=== PATIENT | female | born 1990 | race Two or more races ===

== ENCOUNTER 2020-03-09 10:40 | Inpatient (IN) | payer BC ==
[~2020-03-09] VITALS: Ht 152.4 cm; Wt 82.8 kg
[~2020-03-09 10:40] MED LIST: METHYLERGONOVINE 0.2 MG/ML IM ONE
[2020-03-09] MEDS ORDERED: ALUMINUM/MAG/SIMETHICONE 30 ML UDC PO PRN (21:30)
[2020-03-09] MEDS ORDERED: D5%-LACTATED RINGERS 1,000 ML IV SCH (21:30)
[2020-03-09] MEDS ORDERED: OXYTOCIN 30U/ 0.9% NaCL 500ML 500 ML IV PRN (21:30)
[2020-03-09] MEDS ORDERED: TERBUTALINE 1 MG/ML, 1ML SQ PRN (21:30)
[2020-03-09] MEDS ORDERED: TERBUTALINE 1 MG/ML, 1ML IVPush PRN (21:30)
[2020-03-09] MEDS ORDERED: FENTANYL PF 100 MCG/2ML IVPush PRN (21:30)
[2020-03-09] MEDS ORDERED: FENTANYL PF 100 MCG/2ML IV PRN (21:30)
[2020-03-09] MEDS ORDERED: PLEASE ENTER ALLERGIES MC SCH (21:30)
[2020-03-09] MEDS ORDERED: OXYTOCIN 30U/ 0.9% NaCL 500ML 500 ML IV ONE (21:30)
[2020-03-09] MEDS ORDERED: PENICILLIN GK 5,000,000 UNITS in DEXTROSE 5% 100 ML IVPB ONE (21:30)
[2020-03-09] MEDS ORDERED: CALCIUM CARBONATE 500 MG TAB.CHEW PO PRN (21:30)
[2020-03-09 21:41] LABS: BASOPHILS % (AUTO) 1 % (0-1); EOSINOPHILS % (AUTO) 1 % (1-7); LYMPHOCYTES % (AUTO) 24 % (22-44); MEAN CORPUSCULAR HEMOGLOBIN 32.5 pg (27.0-34.8); MEAN CORPUSCULAR HGB CONC 34.2 g/dL (32.4-35.8); MEAN PLATELET VOLUME 9.2 fL (7.4-10.4); MONOCYTES % (AUTO) 8 % (2-9); NEUTROPHILS % (AUTO) 67 % (42-75); PLATELET COUNT 262 x10^3/uL (130-400); RED BLOOD COUNT 3.79 x10^6/uL (3.82-5.3)
[2020-03-09 21:44] LABS: MD NO
[2020-03-09] MEDS ORDERED: NEWBORN KIT ONE (22:00)
[2020-03-09] MEDS ORDERED: MISOPROSTOL 25 MCG TABLET ONE (22:28)
[2020-03-09] MEDS: MISOPROSTOL 25 MCG TABLET VG PRN (22:30)
[2020-03-09] MEDS: LACTATED RINGERS 1,000 ML IV SCH (22:41)
[2020-03-09] MEDS ORDERED: OXYTOCIN 30U/ 0.9% NaCL 500ML 500 ML ONE (22:49)
[2020-03-10 00:05] VITALS: BP 121/76
[2020-03-10] MEDS ORDERED: MISOPROSTOL 25 MCG TABLET ONE (02:31)
[2020-03-10] MEDS: LACTATED RINGERS 1,000 ML IV SCH ×2 (02:46→09:10)
[2020-03-10] MEDS: MISOPROSTOL 25 MCG TABLET VG PRN (02:46)
[2020-03-10] MEDS ORDERED: ONDANSETRON 2MG/ML, 2ML ONE ×2 (07:50→17:00)
[2020-03-10] MEDS: ONDANSETRON 2MG/ML, 2ML IVPush PRN ×2 (07:52→17:03)
[2020-03-10] MEDS ORDERED: FENTANYL PF 100 MCG/2ML ONE (08:28)
[2020-03-10] MEDS ORDERED: FENTANYL/BUPIV./NS/PF 250 ML EPIDCONT ONE (09:23)
[2020-03-10] MEDS ORDERED: LIDOCAINE/PF 1.5% EPI 1:200K, 10 ML ONE (09:23)
[2020-03-10] MEDS ORDERED: LACTATED RINGERS 1,000 ML IVBOLUS PRN (10:30)
[2020-03-10] MEDS ORDERED: LACTATED RINGERS 1,000 ML IV SCH (10:30)
[2020-03-10] MEDS ORDERED: NALOXONE 0.4 MG/ML, 1ML IVPush PRN (10:30)
[2020-03-10] MEDS ORDERED: FENTANYL/BUPIV./NS/PF 250 ML EPIDCONT SCH (10:30)
[2020-03-10] MEDS ORDERED: EPHEDRINE 50 MG/ML, 1ML IVPush PRN (10:30)
[2020-03-10] MEDS: PENICILLIN GK 2,500,000 UNITS in DEXTROSE 5% 100 ML IV SCH ×3 (11:17→19:44)
[2020-03-10] MEDS ORDERED: ACETAMINOPHEN 325 MG TABLET ONE ×2 (14:53→19:40)
[2020-03-10] MEDS ORDERED: ACETAMINOPHEN 325 MG TABLET PO PRN (19:45)
[2020-03-10] MEDS ORDERED: DIPHENHYDRAMINE 50 MG/ML, 1ML ONE (20:55)
[2020-03-10] MEDS ORDERED: METOCLOPRAMIDE 5 MG/ML, 2ML ONE (23:11)
[2020-03-10] MEDS ORDERED: SODIUM CITRATE/CITRIC ACID 15 ML UDC ONE (23:12)
[2020-03-10] MEDS ORDERED: NEWBORN KIT ONE (23:19)
[2020-03-11] MEDS ORDERED: METHYLERGONOVINE 0.2 MG/ML IM PRN
[2020-03-11] MEDS ORDERED: OXYcodone/APAP 5/325MG TABLET PO PRN ×2
[2020-03-11] MEDS ORDERED: METOCLOPRAMIDE 5 MG/ML, 2ML IV PRN
[2020-03-11] MEDS ORDERED: IBUPROFEN 600 MG TABLET PO PRN
[2020-03-11] MEDS ORDERED: KETOROLAC 30 MG/1 ML IV SCH
[2020-03-11] MEDS ORDERED: CALCIUM CARBONATE 500 MG TAB.CHEW PO PRN
[2020-03-11] MEDS ORDERED: LACTATED RINGERS 1,000 ML IV SCH ×2
[2020-03-11] MEDS ORDERED: ACETAMINOPHEN 325 MG TABLET PO PRN
[2020-03-11] MEDS ORDERED: GLYCERIN ADULT SUPP PR PRN
[2020-03-11] MEDS ORDERED: ONDANSETRON 2MG/ML, 2ML IV PRN
[2020-03-11] MEDS ORDERED: SIMETHICONE 80 MG CHEW TAB PO PRN
[2020-03-11] MEDS ORDERED: DIPH,PERTUSS(ACELL),TET VAC/PF NC IM-VACC PRN
[2020-03-11] MEDS ORDERED: OXYTOCIN 30U/ 0.9% NaCL 500ML 500 ML IV SCH
[2020-03-11] MEDS ORDERED: DOCUSATE 100 MG CAPSULE PO PRN
[2020-03-11] MEDS ORDERED: MISOPROSTOL 200 MCG TABLET PR PRN
[2020-03-11] MEDS ORDERED: METHYLERGONOVINE 0.2 MG/ML IM ONE
[2020-03-11] MEDS ORDERED: CARBOPROST TROMETHAMINE 250 MCG/ML, 1ML IM PRN
[2020-03-11] MEDS ORDERED: TRANEXAMIC ACID 100 MG/ML, 10ML ONE (00:47)
[2020-03-11] MEDS ORDERED: OXYcodone 5 MG/5 ML ORAL.SOL UDC ONE ×2 (01:50→01:51)
[2020-03-11] MEDS ORDERED: OXYTOCIN 30U/ 0.9% NaCL 500ML 500 ML ONE ×2 (01:54→03:07)
[2020-03-11] MEDS ORDERED: OXYcodone 5 MG/5 ML ORAL.SOL UDC PO PRN (02:00)
[2020-03-11] MEDS ORDERED: PROPOFOL 10 MG/ML, 20ML ONE (03:14)
[2020-03-11] MEDS ORDERED: SUCCINYLCHOLINE 20 MG/ML, 10ML ONE (03:14)
[2020-03-11] MEDS ORDERED: EPHEDRINE 50 MG/ML, 1ML ONE (03:14)
[2020-03-11] MEDS ORDERED: CEFAZOLIN 1,000 MG ONE (03:14)
[2020-03-11] MEDS ORDERED: ROCURONIUM 10 MG/ML,10ML ONE (03:14)
[2020-03-11 03:22] LABS: BASOPHILS % (AUTO) 0 % (0-1); EOSINOPHILS % (AUTO) 0 % (1-7); LYMPHOCYTES % (AUTO) 5 % (22-44); MEAN CORPUSCULAR HEMOGLOBIN 32.1 pg (27.0-34.8); MEAN CORPUSCULAR HGB CONC 33.6 g/dL (32.4-35.8); MEAN PLATELET VOLUME 8.4 fL (7.4-10.4); MONOCYTES % (AUTO) 6 % (2-9); NEUTROPHILS % (AUTO) 89 % (42-75); PLATELET COUNT 110 x10^3/uL (130-400); RED BLOOD COUNT 2.18 x10^6/uL (3.82-5.3)
[2020-03-11 03:27] LABS: MD NO
[2020-03-11] MEDS ORDERED: PHENYLEPHRINE 50 MG in SODIUM CHLORIDE 0.9% 245 ML IV PRN (04:30)
[2020-03-11 05:43] LABS: MEAN CORPUSCULAR HEMOGLOBIN 31.6 pg (27.0-34.8); MEAN CORPUSCULAR HGB CONC 33.5 g/dL (32.4-35.8); MEAN PLATELET VOLUME 7.2 fL (7.4-10.4); PLATELET COUNT 156 x10^3/uL (130-400); RED BLOOD COUNT 3.09 x10^6/uL (3.82-5.3); RED CELL DISTRIBUTION WIDTH 13.9 % (9.6-15.2)
[2020-03-11 05:59] LABS: INTERNATIONAL NORMALIZED RATIO 1.55 (0.93-1.1); PROTHROMBIN TIME 16.4 Seconds (9.6-11.5)
[2020-03-11] MEDS ORDERED: ENOXAPARIN 40 MG/0.4 ML SQ SCH (06:00)
[2020-03-11 06:08] LABS: MD YES
[2020-03-11 06:09] LABS: BAND#(MANUAL) 2.89 x10^3/uL; BANDS%(MANUAL) 12 % (0-7); LYMPH#(MANUAL) 3.37 x10^3/uL (1-3.4); LYMPHS% (MANUAL) 14 % (22-44); METAMYELOCYTES# (MANUAL) 0.48 x10^3/uL (0-0); METAMYELOCYTES% (MANUAL) 2 % (0-1); MONOS#(MANUAL) 0.96 x10^3/uL (0.3-2.7); MONOS% (MANUAL) 4 % (2-9); SEG#(MANUAL) 16.39 x10^3/uL (1.8-6.8); SEGS% (MANUAL) 68 % (42-75)
[2020-03-11 06:10] LABS: <PLATELET ESTIMATE> DECREASED; <PLT MORPHOLOGY> NORMAL PLT MORPH; <RBC MORPHOLOGY> NORMAL
[2020-03-11 08:00] VITALS: BP 130/90
[2020-03-11] MEDS ORDERED: PHARMACY MAY ADJ FOR RENAL FX MC SCH (09:00)
[2020-03-11] MEDS ORDERED: SENNA/DOCUSATE TABLET NG PRN (09:00)
[2020-03-11] MEDS ORDERED: PRENATAL VIT/IRON/FA 1 EACH TABLET PO SCH (09:00)
[2020-03-11] MEDS ORDERED: SENNA 176 MG/5 ML ORAL SOL NG PRN (09:00)
[2020-03-11] MEDS ORDERED: LIDOCAINE-MPF 1%, 2ML ENDO PRN (09:00)
[2020-03-11] MEDS ORDERED: BISACODYL 10 MG SUPP PR PRN ×2 (09:00)
[2020-03-11] MEDS ORDERED: LACTULOSE 20 GM/30 ML UDC NG PRN (09:00)
[2020-03-11] MEDS: PROPOFOL 100 ML IV PRN ×2 (09:03→12:06)
[2020-03-11 09:14] LABS: MEAN CORPUSCULAR HEMOGLOBIN 30.7 pg (27.0-34.8); MEAN CORPUSCULAR HGB CONC 33.8 g/dL (32.4-35.8); MEAN PLATELET VOLUME 7.1 fL (7.4-10.4); PLATELET COUNT 88 x10^3/uL (130-400); RED BLOOD COUNT 2.85 x10^6/uL (3.82-5.3)
[2020-03-11] MEDS ORDERED: ONDANSETRON 2MG/ML, 2ML ONE (13:00)
[2020-03-11] MEDS: FENTANYL PF 100 MCG/2ML IVPush PRN ×2 (13:26→16:43)
[2020-03-11 15:39] LABS: MEAN CORPUSCULAR HEMOGLOBIN 30.9 pg (27.0-34.8); MEAN CORPUSCULAR HGB CONC 34.4 g/dL (32.4-35.8); MEAN PLATELET VOLUME 7.5 fL (7.4-10.4); RED BLOOD COUNT 2.46 x10^6/uL (3.82-5.3); RED CELL DISTRIBUTION WIDTH 14.6 % (9.6-15.2)
[2020-03-11 15:45] LABS: PLATELET COUNT 60 x10^3/uL (130-400)
[2020-03-11 15:46] LABS: MD YES
[2020-03-11 15:47] LABS: ALANINE AMINOTRANSFERASE 48 U/L (12-78); ALBUMIN 1.6 g/dL (3.4-5.0); ANION GAP 11 mmol/L (5-15); CALCIUM 6.9 mg/dL (8.5-10.1); CHLORIDE 112 mmol/L (98-107); CREATININE 2.07 mg/dL (0.55-1.02)
[2020-03-11 15:50] LABS: ALKALINE PHOSPHATASE 93 U/L (45-117); BILIRUBIN,TOTAL 1.6 mg/dL (0.2-1.0)
[2020-03-11 15:53] LABS: INTERNATIONAL NORMALIZED RATIO 1.01 (0.93-1.1); PROTHROMBIN TIME 10.7 Seconds (9.6-11.5)
[2020-03-11 16:45] VITALS: BP 131/80
[2020-03-11 17:00] VITALS: BP 131/87
[2020-03-11] MEDS ORDERED: LACTATED RINGERS 1,000 ML IVBOLUS ONE ×3 (17:00)
[2020-03-11 17:23] LABS: BAND#(MANUAL) 1.54 x10^3/uL; BANDS%(MANUAL) 14 % (0-7); LYMPH#(MANUAL) 0.66 x10^3/uL (1-3.4); LYMPHS% (MANUAL) 6 % (22-44); MONOS#(MANUAL) 0.66 x10^3/uL (0.3-2.7); MONOS% (MANUAL) 6 % (2-9); SEG#(MANUAL) 8.14 x10^3/uL (1.8-6.8); SEGS% (MANUAL) 74 % (42-75)
[2020-03-11 17:25] LABS: <PLATELET ESTIMATE> DECREASED; <PLT MORPHOLOGY> NORMAL PLT MORPH; ANISOCYTOSIS 1+; POLYCHROMASIA 1+
[2020-03-11] MEDS ORDERED: morphine SULFATE 10 MG/ML, 1ML IVPush PRN (18:00)
[2020-03-11] MEDS ORDERED: MORPHINE SULFATE 4 MG/ML, 1ML IVPush PRN (18:00)
[2020-03-11] MEDS ORDERED: OXYcodone IR 5MG TABLET PO PRN (18:00)
[2020-03-11] MEDS: ONDANSETRON 2MG/ML, 2ML IV PRN ×2 (18:02→22:08)
[2020-03-11 18:03] VITALS: BP 143/85
[2020-03-11] MEDS: PROCHLORPERAZINE 5 MG/ML, 2ML IV PRN (18:18)
[2020-03-11 20:07] VITALS: BP 131/70
[2020-03-11 21:21] LABS: ALBUMIN 1.6 g/dL (3.4-5.0); ANION GAP 10 mmol/L (5-15); CALCIUM 6.9 mg/dL (8.5-10.1); CHLORIDE 111 mmol/L (98-107); CREATININE 2.34 mg/dL (0.55-1.02); MEAN CORPUSCULAR HEMOGLOBIN 30.5 pg (27.0-34.8); MEAN CORPUSCULAR HGB CONC 34.2 g/dL (32.4-35.8); MEAN PLATELET VOLUME 7.6 fL (7.4-10.4); RED BLOOD COUNT 2.99 x10^6/uL (3.82-5.3); RED CELL DISTRIBUTION WIDTH 14.7 % (9.6-15.2)
[2020-03-11 21:26] LABS: PLATELET COUNT 48 x10^3/uL (130-400)
[2020-03-11] MEDS: D5%-0.45% NACL 1,000 ML IV SCH (22:08)
[2020-03-12 03:03] LABS: BASOPHILS % (AUTO) 0 % (0-1); EOSINOPHILS % (AUTO) 0 % (1-7); LYMPHOCYTES % (AUTO) 5 % (22-44); MEAN CORPUSCULAR HEMOGLOBIN 30.2 pg (27.0-34.8); MEAN CORPUSCULAR HGB CONC 35.2 g/dL (32.4-35.8); MEAN PLATELET VOLUME 7.1 fL (7.4-10.4); MONOCYTES % (AUTO) 5 % (2-9); NEUTROPHILS % (AUTO) 90 % (42-75); RED BLOOD COUNT 2.45 x10^6/uL (3.82-5.3); RED CELL DISTRIBUTION WIDTH 15.2 % (9.6-15.2)
[2020-03-12 03:12] LABS: MD NO; PLATELET COUNT 45 x10^3/uL (130-400)
[2020-03-12 03:15] LABS: ANION GAP 8 mmol/L (5-15); CALCIUM 6.5 mg/dL (8.5-10.1); CHLORIDE 111 mmol/L (98-107); CREATININE 2.83 mg/dL (0.55-1.02)
[2020-03-12] MEDS: OXYcodone IR 5MG TABLET PO PRN ×4 (04:08→21:20)
[2020-03-12] MEDS: ONDANSETRON 2MG/ML, 2ML IV PRN ×2 (04:12→13:57)
[2020-03-12] MEDS: D5%-0.45% NACL 1,000 ML IV SCH (06:02)
[2020-03-12 06:34] VITALS: BP 128/76
[2020-03-12 06:51] VITALS: BP 130/79
[2020-03-12] MEDS ORDERED: ONDANSETRON 2MG/ML, 2ML IV PRN (08:00)
[2020-03-12] MEDS ORDERED: MAGNESIUM SULFATE PMX 4GM/100M 100 ML IVPB ONE (08:30)
[2020-03-12 08:55] VITALS: BP 144/80
[2020-03-12 12:20] LABS: BASOPHILS % (AUTO) 0 % (0-1); EOSINOPHILS % (AUTO) 0 % (1-7); LYMPHOCYTES % (AUTO) 4 % (22-44); MEAN CORPUSCULAR HEMOGLOBIN 30.5 pg (27.0-34.8); MEAN PLATELET VOLUME 7.6 fL (7.4-10.4); MONOCYTES % (AUTO) 6 % (2-9); NEUTROPHILS % (AUTO) 89 % (42-75); RED BLOOD COUNT 2.64 x10^6/uL (3.82-5.3); RED CELL DISTRIBUTION WIDTH 15.5 % (9.6-15.2)
[2020-03-12 13:01] LABS: ANION GAP 11 mmol/L (5-15); CALCIUM 6.8 mg/dL (8.5-10.1); CHLORIDE 109 mmol/L (98-107); CREATININE 3.43 mg/dL (0.55-1.02)
[2020-03-12] MEDS ORDERED: FUROSEMIDE 20 MG/2 ML IV ONE (13:30)
[2020-03-12 13:36] LABS: PLATELET COUNT 35 x10^3/uL (130-400)
[2020-03-12 13:38] LABS: MD SCAN
[2020-03-12] MEDS: SODIUM BICARBONATE 8.4% 150 MEQ in DEXTROSE 5% 1,000 ML IV SCH (14:51)
[2020-03-12 15:28] LABS: ALANINE AMINOTRANSFERASE 79 U/L (12-78)
[2020-03-12 15:29] LABS: ALKALINE PHOSPHATASE 104 U/L (45-117)
[2020-03-12 18:37] LABS: BASOPHILS % (AUTO) 0 % (0-1); EOSINOPHILS % (AUTO) 0 % (1-7); LYMPHOCYTES % (AUTO) 3 % (22-44); MEAN CORPUSCULAR HEMOGLOBIN 30.5 pg (27.0-34.8); MEAN CORPUSCULAR HGB CONC 34.6 g/dL (32.4-35.8); MEAN PLATELET VOLUME 7.9 fL (7.4-10.4); MONOCYTES % (AUTO) 6 % (2-9); NEUTROPHILS % (AUTO) 91 % (42-75); RED BLOOD COUNT 2.49 x10^6/uL (3.82-5.3); RED CELL DISTRIBUTION WIDTH 15.8 % (9.6-15.2)
[2020-03-12 18:46] LABS: PLATELET COUNT 42 x10^3/uL (130-400)
[2020-03-12 18:47] LABS: ANION GAP 12 mmol/L (5-15); CALCIUM 6.7 mg/dL (8.5-10.1); CHLORIDE 107 mmol/L (98-107); CREATININE 3.88 mg/dL (0.55-1.02); MD NO
[2020-03-12 20:53] LABS: MEAN CORPUSCULAR HEMOGLOBIN 30.2 pg (27.0-34.8); MEAN CORPUSCULAR HGB CONC 34.8 g/dL (32.4-35.8); MEAN PLATELET VOLUME 9.2 fL (7.4-10.4); RED BLOOD COUNT 2.45 x10^6/uL (3.82-5.3); RED CELL DISTRIBUTION WIDTH 15.7 % (9.6-15.2)
[2020-03-12 21:15] LABS: PLATELET COUNT 41 x10^3/uL (130-400)
[2020-03-13] VITALS (23 sets, daily range): BP systolic 122–146; BP diastolic 78–90
[2020-03-13] MEDS: SODIUM BICARBONATE 8.4% 150 MEQ in DEXTROSE 5% 1,000 ML IV SCH ×4 (00:03→23:41)
[2020-03-13] MEDS: OXYcodone IR 5MG TABLET PO PRN ×3 (01:27→17:53)
[2020-03-13 03:07] LABS: MEAN CORPUSCULAR HEMOGLOBIN 30.5 pg (27.0-34.8); MEAN PLATELET VOLUME 8.7 fL (7.4-10.4); RED BLOOD COUNT 2.28 x10^6/uL (3.82-5.3); RED CELL DISTRIBUTION WIDTH 15.5 % (9.6-15.2)
[2020-03-13 03:14] LABS: PLATELET COUNT 40 x10^3/uL (130-400)
[2020-03-13 03:15] LABS: INTERNATIONAL NORMALIZED RATIO 0.88 (0.93-1.1); PROTHROMBIN TIME 9.3 Seconds (9.6-11.5)
[2020-03-13 03:19] LABS: ALANINE AMINOTRANSFERASE 33 U/L (12-78); ALBUMIN 1.2 g/dL (3.4-5.0); ANION GAP 8 mmol/L (5-15); CALCIUM 6.8 mg/dL (8.5-10.1); CHLORIDE 106 mmol/L (98-107); CREATININE 4.38 mg/dL (0.55-1.02)
[2020-03-13 03:21] LABS: ALKALINE PHOSPHATASE 101 U/L (45-117); BILIRUBIN,TOTAL 1.3 mg/dL (0.2-1.0); TOTAL PROTEIN 3.8 g/dL (6.4-8.2)
[2020-03-13 04:42] LABS: BASOPHILS % (AUTO) 0 % (0-1); EOSINOPHILS % (AUTO) 0 % (1-7); LYMPHOCYTES % (AUTO) 5 % (22-44); MEAN CORPUSCULAR HEMOGLOBIN 30.3 pg (27.0-34.8); MEAN CORPUSCULAR HGB CONC 34.9 g/dL (32.4-35.8); MEAN PLATELET VOLUME 9.3 fL (7.4-10.4); MONOCYTES % (AUTO) 5 % (2-9); NEUTROPHILS % (AUTO) 90 % (42-75); RED BLOOD COUNT 2.19 x10^6/uL (3.82-5.3); RED CELL DISTRIBUTION WIDTH 15.7 % (9.6-15.2)
[2020-03-13 04:52] LABS: ALBUMIN 1.1 g/dL (3.4-5.0); CALCIUM 6.7 mg/dL (8.5-10.1); CHLORIDE 106 mmol/L (98-107)
[2020-03-13 04:58] LABS: ALANINE AMINOTRANSFERASE 30 U/L (12-78); ALKALINE PHOSPHATASE 95 U/L (45-117); ANION GAP 10 mmol/L (5-15); BILIRUBIN,TOTAL 1.5 mg/dL (0.2-1.0); CREATININE 4.41 mg/dL (0.55-1.02); TOTAL PROTEIN 3.7 g/dL (6.4-8.2)
[2020-03-13 05:02] LABS: PLATELET COUNT 39 x10^3/uL (130-400)
[2020-03-13 05:03] LABS: MD NO
[2020-03-13] MEDS: DOCUSATE 100 MG CAPSULE PO SCH (07:56)
[2020-03-13] MEDS: SIMETHICONE 80 MG CHEW TAB PO SCH ×3 (09:08→20:34)
[2020-03-13] MEDS: ONDANSETRON 2MG/ML, 2ML IV PRN ×3 (10:04→22:49)
[2020-03-13] MEDS ORDERED: CALCIUM CARBONATE 500 MG TAB.CHEW PO PRN (10:30)
[2020-03-13 11:17] LABS: BAND#(MANUAL) 2.31 x10^3/uL; BANDS%(MANUAL) 14 % (0-7); LYMPH#(MANUAL) 0.99 x10^3/uL (1-3.4); LYMPHS% (MANUAL) 6 % (22-44); MONOS#(MANUAL) 0.33 x10^3/uL (0.3-2.7); MONOS% (MANUAL) 2 % (2-9); SEG#(MANUAL) 12.87 x10^3/uL (1.8-6.8); SEGS% (MANUAL) 78 % (42-75)
[2020-03-13 11:18] LABS: ANISOCYTOSIS 1+; POLYCHROMASIA 1+
[2020-03-13 11:19] LABS: SCHISTOCYTES 1+
[2020-03-13 11:20] LABS: ECHINOCYTES 1+
[2020-03-13 11:24] LABS: <PLATELET ESTIMATE> DECREASED; <PLT MORPHOLOGY> NORMAL PLT MORPH
[2020-03-13 11:48] LABS: HCT (SEDRATE) 19.1 % (34.6-47.8)
[2020-03-13 12:12] LABS: MEAN CORPUSCULAR HEMOGLOBIN 30.3 pg (27.0-34.8); MEAN CORPUSCULAR HGB CONC 34.7 g/dL (32.4-35.8); MEAN PLATELET VOLUME 10.4 fL (7.4-10.4); RED BLOOD COUNT 2.28 x10^6/uL (3.82-5.3); RED CELL DISTRIBUTION WIDTH 15.6 % (9.6-15.2)
[2020-03-13 12:14] LABS: MD YES; PLATELET COUNT 44 x10^3/uL (130-400)
[2020-03-13 12:28] LABS: ANISOCYTOSIS 1+; BAND#(MANUAL) 0.64 x10^3/uL; BANDS%(MANUAL) 4 % (0-7); LYMPH#(MANUAL) 1.13 x10^3/uL (1-3.4); LYMPHS% (MANUAL) 7 % (22-44); MONOS#(MANUAL) 0.64 x10^3/uL (0.3-2.7); MONOS% (MANUAL) 4 % (2-9); POLYCHROMASIA 1+; SCHISTOCYTES 1+; SEG#(MANUAL) 13.69 x10^3/uL (1.8-6.8); SEGS% (MANUAL) 85 % (42-75)
[2020-03-13 12:30] LABS: <PLATELET ESTIMATE> DECREASED; LARGE PLATELETS 1+
[2020-03-13 13:18] LABS: MICROSCOPIC INDICATED
[2020-03-13] MEDS: CALCIUM GLUCONATE 0.46MEQ/1ML IVPush PRN (15:45)
[2020-03-13] MEDS: PROCHLORPERAZINE 5 MG/ML, 2ML IV PRN (17:54)
[2020-03-13 18:20] LABS: MEAN CORPUSCULAR HEMOGLOBIN 30.2 pg (27.0-34.8); MEAN CORPUSCULAR HGB CONC 34.9 g/dL (32.4-35.8); MEAN PLATELET VOLUME 7.8 fL (7.4-10.4); RED BLOOD COUNT 2.71 x10^6/uL (3.82-5.3); RED CELL DISTRIBUTION WIDTH 15.2 % (9.6-15.2)
[2020-03-13 18:38] LABS: MD YES; PLATELET COUNT 43 x10^3/uL (130-400)
[2020-03-13 20:12] LABS: ANISOCYTOSIS 1+; BAND#(MANUAL) 2.06 x10^3/uL; BANDS%(MANUAL) 14 % (0-7); LYMPH#(MANUAL) 1.18 x10^3/uL (1-3.4); LYMPHS% (MANUAL) 8 % (22-44); MONOS#(MANUAL) 0.29 x10^3/uL (0.3-2.7); MONOS% (MANUAL) 2 % (2-9); SEG#(MANUAL) 11.17 x10^3/uL (1.8-6.8); SEGS% (MANUAL) 76 % (42-75)
[2020-03-13 20:15] LABS: POLYCHROMASIA 1+; SCHISTOCYTES 1+
[2020-03-13 20:16] LABS: <PLATELET ESTIMATE> DECREASED
[2020-03-13 20:17] LABS: <PLT MORPHOLOGY> NORMAL PLT MORPH
[2020-03-13 22:11] LABS: MEAN CORPUSCULAR HEMOGLOBIN 30.2 pg (27.0-34.8); MEAN PLATELET VOLUME 8.2 fL (7.4-10.4); RED BLOOD COUNT 2.69 x10^6/uL (3.82-5.3); RED CELL DISTRIBUTION WIDTH 15.4 % (9.6-15.2)
[2020-03-13 23:00] LABS: MD YES; PLATELET COUNT 41 x10^3/uL (130-400)
[2020-03-13 23:18] LABS: CREATININE,URINE RANDOM 58.9 mg/dL
[2020-03-13 23:54] LABS: BAND#(MANUAL) 0.14 x10^3/uL; BANDS%(MANUAL) 1 % (0-7); BASOS#(MANUAL) 0.28 x10^3/uL (0-0.1); BASOS% (MANUAL) 2 % (0-1); EOS#(MANUAL) 0.14 x10^3/uL (0.0-0.4); EOS% (MANUAL) 1 % (1-7); LYMPH#(MANUAL) 0.99 x10^3/uL (1-3.4); LYMPHS% (MANUAL) 7 % (22-44); MONOS#(MANUAL) 0.14 x10^3/uL (0.3-2.7); MONOS% (MANUAL) 1 % (2-9); MYELOCYTES# (MANUAL) 0.14 x10^3/uL (0-0); MYELOCYTES% (MANUAL) 1 % (0-0); SEG#(MANUAL) 12.27 x10^3/uL (1.8-6.8); SEGS% (MANUAL) 87 % (42-75)
[2020-03-13 23:55] LABS: <PLATELET ESTIMATE> DECREASED; <PLT MORPHOLOGY> NORMAL PLT MORPH; ANISOCYTOSIS 1+; POLYCHROMASIA 1+; SCHISTOCYTES 1+
[2020-03-14] VITALS (18 sets, daily range): BP systolic 132–170; BP diastolic 76–92
[2020-03-14] MEDS: SIMETHICONE 80 MG CHEW TAB PO SCH ×5 (05:21→20:41)
[2020-03-14 05:25] LABS: MEAN CORPUSCULAR HEMOGLOBIN 30.3 pg (27.0-34.8); MEAN PLATELET VOLUME 8.4 fL (7.4-10.4); RED BLOOD COUNT 2.51 x10^6/uL (3.82-5.3); RED CELL DISTRIBUTION WIDTH 15.4 % (9.6-15.2)
[2020-03-14 05:29] LABS: ALBUMIN 1.6 g/dL (3.4-5.0); ANION GAP 7 mmol/L (5-15); CALCIUM 7.5 mg/dL (8.5-10.1); CHLORIDE 101 mmol/L (98-107)
[2020-03-14 05:31] LABS: PLATELET COUNT 35 x10^3/uL (130-400)
[2020-03-14 05:34] LABS: ALANINE AMINOTRANSFERASE 16 U/L (12-78); ALKALINE PHOSPHATASE 73 U/L (45-117); BILIRUBIN,TOTAL 3.7 mg/dL (0.2-1.0)
[2020-03-14 06:30] LABS: MD YES
[2020-03-14 06:32] LABS: <PLATELET ESTIMATE> DECREASED; <PLT MORPHOLOGY> NORMAL PLT MORPH; ANISOCYTOSIS 1+; BAND#(MANUAL) 0.25 x10^3/uL; BANDS%(MANUAL) 2 % (0-7); EOS#(MANUAL) 0.12 x10^3/uL (0.0-0.4); EOS% (MANUAL) 1 % (1-7); LYMPH#(MANUAL) 1.24 x10^3/uL (1-3.4); LYMPHS% (MANUAL) 10 % (22-44); METAMYELOCYTES# (MANUAL) 0.25 x10^3/uL (0-0); METAMYELOCYTES% (MANUAL) 2 % (0-1); MONOS#(MANUAL) 1.12 x10^3/uL (0.3-2.7); MONOS% (MANUAL) 9 % (2-9); MYELOCYTES# (MANUAL) 0.12 x10^3/uL (0-0); MYELOCYTES% (MANUAL) 1 % (0-0); POLYCHROMASIA 1+; SCHISTOCYTES 1+; SEGS% (MANUAL) 75 % (42-75)
[2020-03-14] MEDS: ONDANSETRON 2MG/ML, 2ML IV PRN (09:22)
[2020-03-14] MEDS: DOCUSATE 100 MG CAPSULE PO SCH (09:46)
[2020-03-14 10:47] LABS: MEAN CORPUSCULAR HEMOGLOBIN 30.7 pg (27.0-34.8); MEAN CORPUSCULAR HGB CONC 35.2 g/dL (32.4-35.8); MEAN PLATELET VOLUME 9.3 fL (7.4-10.4); RED BLOOD COUNT 2.58 x10^6/uL (3.82-5.3); RED CELL DISTRIBUTION WIDTH 15.1 % (9.6-15.2)
[2020-03-14 10:52] LABS: MD YES; PLATELET COUNT 38 x10^3/uL (130-400)
[2020-03-14 11:59] LABS: ANISOCYTOSIS 1+; BAND#(MANUAL) 0.52 x10^3/uL; BANDS%(MANUAL) 4 % (0-7); EOS#(MANUAL) 0.13 x10^3/uL (0.0-0.4); EOS% (MANUAL) 1 % (1-7); LYMPH#(MANUAL) 1.44 x10^3/uL (1-3.4); LYMPHS% (MANUAL) 11 % (22-44); METAMYELOCYTES# (MANUAL) 0.13 x10^3/uL (0-0); METAMYELOCYTES% (MANUAL) 1 % (0-1); MONOS#(MANUAL) 1.18 x10^3/uL (0.3-2.7); MONOS% (MANUAL) 9 % (2-9); POLYCHROMASIA 1+; SCHISTOCYTES 1+; SEG#(MANUAL) 9.69 x10^3/uL (1.8-6.8); SEGS% (MANUAL) 74 % (42-75); SPHEROCYTES 1+
[2020-03-14 12:00] LABS: <PLATELET ESTIMATE> DECREASED; <PLT MORPHOLOGY> NORMAL PLT MORPH
[2020-03-14] MEDS: CALCIUM GLUCONATE 0.46MEQ/1ML IVPush PRN (12:19)
[2020-03-14] MEDS: PROCHLORPERAZINE 5 MG/ML, 2ML IV PRN ×2 (12:45→22:29)
[2020-03-14] MEDS: SODIUM BICARBONATE 8.4% 150 MEQ in DEXTROSE 5% 1,000 ML IV SCH (13:32)
[2020-03-14 16:38] LABS: MEAN CORPUSCULAR HEMOGLOBIN 30.3 pg (27.0-34.8); MEAN CORPUSCULAR HGB CONC 34.7 g/dL (32.4-35.8); MEAN PLATELET VOLUME 9.4 fL (7.4-10.4); RED CELL DISTRIBUTION WIDTH 15.6 % (9.6-15.2)
[2020-03-14 16:49] LABS: MD YES; PLATELET COUNT 36 x10^3/uL (130-400)
[2020-03-14 17:10] LABS: ANISOCYTOSIS 1+; BAND#(MANUAL) 0.12 x10^3/uL; BANDS%(MANUAL) 1 % (0-7); EOS#(MANUAL) 0.12 x10^3/uL (0.0-0.4); EOS% (MANUAL) 1 % (1-7); LYMPH#(MANUAL) 1.38 x10^3/uL (1-3.4); LYMPHS% (MANUAL) 12 % (22-44); MONOS#(MANUAL) 0.58 x10^3/uL (0.3-2.7); MONOS% (MANUAL) 5 % (2-9); SEG#(MANUAL) 9.32 x10^3/uL (1.8-6.8); SEGS% (MANUAL) 81 % (42-75)
[2020-03-14 17:11] LABS: POLYCHROMASIA 1+; SPHEROCYTES 1+
[2020-03-14 17:12] LABS: <PLATELET ESTIMATE> DECREASED; <PLT MORPHOLOGY> NORMAL PLT MORPH; SCHISTOCYTES 1+
[2020-03-14 23:39] LABS: BASOPHILS % (AUTO) 0 % (0-1); EOSINOPHILS % (AUTO) 1 % (1-7); LYMPHOCYTES % (AUTO) 10 % (22-44); MEAN CORPUSCULAR HEMOGLOBIN 30.1 pg (27.0-34.8); MEAN CORPUSCULAR HGB CONC 34.8 g/dL (32.4-35.8); MEAN PLATELET VOLUME 7.4 fL (7.4-10.4); MONOCYTES % (AUTO) 7 % (2-9); NEUTROPHILS % (AUTO) 81 % (42-75); RED BLOOD COUNT 2.92 x10^6/uL (3.82-5.3); RED CELL DISTRIBUTION WIDTH 15.1 % (9.6-15.2)
[2020-03-15] VITALS (17 sets, daily range): BP systolic 120–170; BP diastolic 62–95
[2020-03-15 00:27] LABS: MD MORPH REVIEW ONLY; PLATELET COUNT 30 x10^3/uL (130-400)
[2020-03-15 00:28] LABS: ANISOCYTOSIS 1+
[2020-03-15 00:30] LABS: <PLATELET ESTIMATE> DECREASED; <PLT MORPHOLOGY> NORMAL PLT MORPH; SCHISTOCYTES 2+
[2020-03-15 04:50] LABS: ABSOLUTE RETICS # 0.087 x10^6/uL (0.5-2.5); MEAN CORPUSCULAR HEMOGLOBIN 30.2 pg (27.0-34.8); MEAN CORPUSCULAR HGB CONC 34.7 g/dL (32.4-35.8); MEAN PLATELET VOLUME 8.5 fL (7.4-10.4); RETICULOCYTE COUNT % 3.11 % (0.5-1.5)
[2020-03-15 05:03] LABS: ANION GAP 3 mmol/L (5-15); CALCIUM 7.7 mg/dL (8.5-10.1); CHLORIDE 104 mmol/L (98-107)
[2020-03-15 05:05] LABS: BILIRUBIN, DIRECT 2.1 mg/dL (0.1-0.2); BILIRUBIN,INDIRECT 1.2 mg/dL (0.0-2.0); BILIRUBIN,TOTAL 3.3 mg/dL (0.2-1.0); CREATININE 4.51 mg/dL (0.55-1.02)
[2020-03-15 05:13] LABS: D-DIMER (DIC) 3.57 ug/mlFEU (0.00-0.52); PROTIME 10.1 Seconds (9.6-11.5)
[2020-03-15 05:15] LABS: PLATELET COUNT 31 x10^3/uL (130-400)
[2020-03-15] MEDS: SODIUM BICARBONATE 8.4% 150 MEQ in DEXTROSE 5% 1,000 ML IV SCH ×2 (05:32→21:07)
[2020-03-15 05:50] LABS: MD YES
[2020-03-15 05:52] LABS: ANISOCYTOSIS 1+; BAND#(MANUAL) 0.34 x10^3/uL; BANDS%(MANUAL) 3 % (0-7); EOS#(MANUAL) 0.23 x10^3/uL (0.0-0.4); EOS% (MANUAL) 2 % (1-7); LYMPHS% (MANUAL) 8 % (22-44); METAMYELOCYTES# (MANUAL) 0.23 x10^3/uL (0-0); METAMYELOCYTES% (MANUAL) 2 % (0-1); MONOS#(MANUAL) 0.79 x10^3/uL (0.3-2.7); MONOS% (MANUAL) 7 % (2-9); POLYCHROMASIA 1+; SEG#(MANUAL) 8.81 x10^3/uL (1.8-6.8); SEGS% (MANUAL) 78 % (42-75)
[2020-03-15 05:53] LABS: <PLATELET ESTIMATE> DECREASED; <PLT MORPHOLOGY> NORMAL PLT MORPH; SCHISTOCYTES 1+
[2020-03-15] MEDS: PROCHLORPERAZINE 5 MG/ML, 2ML IV PRN ×2 (08:59→17:30)
[2020-03-15] MEDS: DOCUSATE 100 MG CAPSULE PO SCH (10:32)
[2020-03-15] MEDS: SIMETHICONE 80 MG CHEW TAB PO SCH ×4 (10:32→21:04)
[2020-03-15] MEDS: FENTANYL PF 100 MCG/2ML IVPush PRN ×2 (10:58→18:35)
[2020-03-15] MEDS: CALCIUM GLUCONATE 0.46MEQ/1ML IVPush PRN (13:36)
[2020-03-16] VITALS (20 sets, daily range): BP systolic 124–152; BP diastolic 80–97
[2020-03-16] MEDS: PROCHLORPERAZINE 5 MG/ML, 2ML IV PRN ×3 (01:06→21:00)
[2020-03-16] MEDS: OXYcodone IR 5MG TABLET PO PRN (01:37)
[2020-03-16 04:54] LABS: ABSOLUTE RETICS # 0.091 x10^6/uL (0.5-2.5); MEAN CORPUSCULAR HEMOGLOBIN 30.3 pg (27.0-34.8); MEAN CORPUSCULAR HGB CONC 34.5 g/dL (32.4-35.8); MEAN PLATELET VOLUME 11.6 fL (7.4-10.4); RED BLOOD COUNT 2.44 x10^6/uL (3.82-5.3); RED CELL DISTRIBUTION WIDTH 15.5 % (9.6-15.2); RETICULOCYTE COUNT % 3.74 % (0.5-1.5)
[2020-03-16 05:00] LABS: ANION GAP 2 mmol/L (5-15); CALCIUM 7.6 mg/dL (8.5-10.1); CHLORIDE 100 mmol/L (98-107); CREATININE 5.52 mg/dL (0.55-1.02)
[2020-03-16 05:11] LABS: PLATELET COUNT 43 x10^3/uL (130-400)
[2020-03-16 05:52] LABS: MD YES
[2020-03-16 05:56] LABS: BAND#(MANUAL) 0.24 x10^3/uL; BANDS%(MANUAL) 2 % (0-7); EOS#(MANUAL) 0.35 x10^3/uL (0.0-0.4); EOS% (MANUAL) 3 % (1-7); LYMPH#(MANUAL) 1.18 x10^3/uL (1-3.4); LYMPHS% (MANUAL) 10 % (22-44); METAMYELOCYTES# (MANUAL) 0.59 x10^3/uL (0-0); METAMYELOCYTES% (MANUAL) 5 % (0-1); MONOS#(MANUAL) 0.94 x10^3/uL (0.3-2.7); MONOS% (MANUAL) 8 % (2-9); SEGS% (MANUAL) 72 % (42-75)
[2020-03-16 05:57] LABS: ANISOCYTOSIS 1+; POLYCHROMASIA 1+
[2020-03-16 05:58] LABS: <PLATELET ESTIMATE> DECREASED; SCHISTOCYTES 1+
[2020-03-16 06:06] LABS: LARGE PLATELETS 1+
[2020-03-16] MEDS: SIMETHICONE 80 MG CHEW TAB PO SCH ×4 (08:00→20:54)
[2020-03-16] MEDS: DOCUSATE 100 MG CAPSULE PO SCH (13:41)
[2020-03-16] MEDS: CALCIUM GLUCONATE 0.46MEQ/1ML IVPush PRN (23:16)
[2020-03-17] VITALS (21 sets, daily range): BP systolic 127–157; BP diastolic 67–95
[2020-03-17] MEDS: PROCHLORPERAZINE 5 MG/ML, 2ML IV PRN (08:25)
[2020-03-17] MEDS: SIMETHICONE 80 MG CHEW TAB PO SCH ×4 (08:26→21:00)
[2020-03-17] MEDS: DOCUSATE 100 MG CAPSULE PO SCH (09:00)
[2020-03-17 09:30] LABS: ALBUMIN 2.7 g/dL (3.4-5.0); ANION GAP 6 mmol/L (5-15); CALCIUM 8.5 mg/dL (8.5-10.1); CHLORIDE 103 mmol/L (98-107)
[2020-03-17 09:35] LABS: ABSOLUTE RETICS # 0.134 x10^6/uL (0.5-2.5); ALANINE AMINOTRANSFERASE 15 U/L (12-78); ALKALINE PHOSPHATASE 75 U/L (45-117); BILIRUBIN,TOTAL 1.4 mg/dL (0.2-1.0); CREATININE 5.19 mg/dL (0.55-1.02); MEAN CORPUSCULAR HEMOGLOBIN 30.7 pg (27.0-34.8); MEAN CORPUSCULAR HGB CONC 34.6 g/dL (32.4-35.8); MEAN PLATELET VOLUME 11.1 fL (7.4-10.4); PLATELET COUNT 62 x10^3/uL (130-400); RED BLOOD COUNT 2.52 x10^6/uL (3.82-5.3); TOTAL PROTEIN 5.4 g/dL (6.4-8.2)
[2020-03-17 10:43] LABS: MD YES
[2020-03-17 10:44] LABS: ANISOCYTOSIS 1+; BAND#(MANUAL) 0.87 x10^3/uL; BANDS%(MANUAL) 5 % (0-7); LYMPH#(MANUAL) 1.22 x10^3/uL (1-3.4); LYMPHS% (MANUAL) 7 % (22-44); METAMYELOCYTES# (MANUAL) 0.35 x10^3/uL (0-0); METAMYELOCYTES% (MANUAL) 2 % (0-1); MONOS#(MANUAL) 1.04 x10^3/uL (0.3-2.7); MONOS% (MANUAL) 6 % (2-9); MYELOCYTES% (MANUAL) 4 % (0-0); POLYCHROMASIA 1+; SCHISTOCYTES 1+; SEG#(MANUAL) 13.22 x10^3/uL (1.8-6.8); SEGS% (MANUAL) 76 % (42-75)
[2020-03-17 10:59] LABS: <PLATELET ESTIMATE> DECREASED; LARGE PLATELETS 1+
[2020-03-17] MEDS: CALCIUM GLUCONATE 0.46MEQ/1ML IVPush PRN (15:45)
[2020-03-18 02:11] VITALS: BP 146/91
[2020-03-18] MEDS: PROCHLORPERAZINE 5 MG/ML, 2ML IV PRN ×3 (03:20→18:14)
[2020-03-18 05:13] LABS: ABSOLUTE RETICS # 0.144 x10^6/uL (0.5-2.5); MEAN CORPUSCULAR HEMOGLOBIN 30.7 pg (27.0-34.8); MEAN CORPUSCULAR HGB CONC 33.9 g/dL (32.4-35.8); MEAN PLATELET VOLUME 9.9 fL (7.4-10.4); PLATELET COUNT 94 x10^3/uL (130-400); RED BLOOD COUNT 2.14 x10^6/uL (3.82-5.3); RETICULOCYTE COUNT % 6.72 % (0.5-1.5)
[2020-03-18 05:24] LABS: ALANINE AMINOTRANSFERASE 10 U/L (12-78); ALBUMIN 2.3 g/dL (3.4-5.0); ANION GAP 3 mmol/L (5-15); CALCIUM 8.2 mg/dL (8.5-10.1); CHLORIDE 104 mmol/L (98-107); CREATININE 6.11 mg/dL (0.55-1.02)
[2020-03-18 05:26] LABS: ALKALINE PHOSPHATASE 60 U/L (45-117); BILIRUBIN,TOTAL 0.9 mg/dL (0.2-1.0); TOTAL PROTEIN 4.7 g/dL (6.4-8.2)
[2020-03-18 05:48] LABS: MD YES
[2020-03-18 05:51] LABS: ANISOCYTOSIS 1+; EOS#(MANUAL) 0.12 x10^3/uL (0.0-0.4); EOS% (MANUAL) 1 % (1-7); LYMPH#(MANUAL) 1.29 x10^3/uL (1-3.4); LYMPHS% (MANUAL) 11 % (22-44); METAMYELOCYTES# (MANUAL) 0.35 x10^3/uL (0-0); METAMYELOCYTES% (MANUAL) 3 % (0-1); MONOS#(MANUAL) 0.35 x10^3/uL (0.3-2.7); MONOS% (MANUAL) 3 % (2-9); MYELOCYTES# (MANUAL) 0.47 x10^3/uL (0-0); MYELOCYTES% (MANUAL) 4 % (0-0); SCHISTOCYTES 1+; SEG#(MANUAL) 9.13 x10^3/uL (1.8-6.8); SEGS% (MANUAL) 78 % (42-75)
[2020-03-18 05:53] LABS: <PLATELET ESTIMATE> DECREASED
[2020-03-18 05:54] LABS: LARGE PLATELETS 1+; POLYCHROMASIA 1+
[2020-03-18 07:43] VITALS: BP 147/91
[2020-03-18] MEDS: SIMETHICONE 80 MG CHEW TAB PO SCH ×4 (07:55→20:46)
[2020-03-18] MEDS: DOCUSATE 100 MG CAPSULE PO SCH ×2 (07:55→12:47)
[2020-03-18 07:57] VITALS: BP 131/86
[2020-03-18 08:00] VITALS: BP 137/87
[2020-03-18 09:18] VITALS: BP 142/97
[2020-03-18] MEDS ORDERED: LABETALOL 5MG/ML, 20ML IVPush PRN (11:00)
[2020-03-18 11:39] LABS: ANA SCREEN NEGATIVE (Negative)
[2020-03-18] MEDS ORDERED: MENING VAC A,C,Y,W-135 DIP/PF (MENACTRA AGES 2-55) 0.5 ML IM-VACC ONE (12:00)
[2020-03-18 19:59] VITALS: BP 157/92
[2020-03-18] MEDS ORDERED: MELATONIN 5 MG TABLET ONE (20:40)
[2020-03-18] MEDS: MELATONIN 5 MG TABLET PO PRN (20:44)
[2020-03-18] MEDS ORDERED: PENICILLIN VK 500MG TABLET PO SCH (21:00)
[2020-03-18] MEDS: PENICILLIN VK 500MG TABLET PO SCH (23:09)
[2020-03-19] VITALS (7 sets, daily range): BP systolic 141–160; BP diastolic 87–96
[2020-03-19] MEDS: PROCHLORPERAZINE 5 MG/ML, 2ML IV PRN ×3 (03:17→15:12)
[2020-03-19 06:37] LABS: ABSOLUTE RETICS # 0.194 x10^6/uL (0.5-2.5); MEAN CORPUSCULAR HEMOGLOBIN 30.6 pg (27.0-34.8); MEAN CORPUSCULAR HGB CONC 34.1 g/dL (32.4-35.8); MEAN PLATELET VOLUME 10.1 fL (7.4-10.4); PLATELET COUNT 146 x10^3/uL (130-400); RED BLOOD COUNT 2.71 x10^6/uL (3.82-5.3); RED CELL DISTRIBUTION WIDTH 15.8 % (9.6-15.2); RETICULOCYTE COUNT % 7.17 % (0.5-1.5)
[2020-03-19 06:46] LABS: ANION GAP 3 mmol/L (5-15); CALCIUM 8.1 mg/dL (8.5-10.1); CHLORIDE 105 mmol/L (98-107); CREATININE 5.43 mg/dL (0.55-1.02)
[2020-03-19 07:10] LABS: D-DIMER (DIC) 11.42 ug/mlFEU (0.00-0.52); PROTIME 10.6 Seconds (9.6-11.5)
[2020-03-19 07:26] LABS: MD YES
[2020-03-19 07:27] LABS: BANDS%(MANUAL) 5 % (0-7); EOS#(MANUAL) 0.24 x10^3/uL (0.0-0.4); EOS% (MANUAL) 2 % (1-7); LYMPH#(MANUAL) 1.67 x10^3/uL (1-3.4); LYMPHS% (MANUAL) 14 % (22-44); METAMYELOCYTES# (MANUAL) 0.48 x10^3/uL (0-0); METAMYELOCYTES% (MANUAL) 4 % (0-1); MONOS#(MANUAL) 1.07 x10^3/uL (0.3-2.7); MONOS% (MANUAL) 9 % (2-9); MYELOCYTES# (MANUAL) 0.12 x10^3/uL (0-0); MYELOCYTES% (MANUAL) 1 % (0-0); SEG#(MANUAL) 7.74 x10^3/uL (1.8-6.8); SEGS% (MANUAL) 65 % (42-75)
[2020-03-19 07:28] LABS: <PLATELET ESTIMATE> ADEQUATE; ANISOCYTOSIS 1+; LARGE PLATELETS 1+; POLYCHROMASIA 1+; SCHISTOCYTES 1+
[2020-03-19] MEDS: SIMETHICONE 80 MG CHEW TAB PO SCH ×4 (08:00→20:14)
[2020-03-19] MEDS ORDERED: hydrALAzine 20 MG/ML, 1ML IV ONE (09:30)
[2020-03-19] MEDS ORDERED: FUROSEMIDE 40 MG/4 ML IV ONE (09:30)
[2020-03-19] MEDS: DOCUSATE 100 MG CAPSULE PO SCH (10:00)
[2020-03-19] MEDS: PENICILLIN VK 500MG TABLET PO SCH ×2 (10:00→22:02)
[2020-03-19] MEDS ORDERED: SODIUM CHLORIDE 0.9% IV ONE (15:00)
[2020-03-19] MEDS ORDERED: ECULIZUMAB IV ONE (15:00)
[2020-03-20] VITALS (7 sets, daily range): BP systolic 128–158; BP diastolic 78–111
[2020-03-20] MEDS: MELATONIN 5 MG TABLET PO PRN ×2 (00:51→20:56)
[2020-03-20] MEDS: PROCHLORPERAZINE 5 MG/ML, 2ML IV PRN ×3 (04:32→21:04)
[2020-03-20 04:58] LABS: MEAN CORPUSCULAR HEMOGLOBIN 30.6 pg (27.0-34.8); MEAN CORPUSCULAR HGB CONC 34.2 g/dL (32.4-35.8); MEAN PLATELET VOLUME 9.7 fL (7.4-10.4); PLATELET COUNT 184 x10^3/uL (130-400); RED BLOOD COUNT 2.67 x10^6/uL (3.82-5.3)
[2020-03-20 05:06] LABS: ANION GAP 7 mmol/L (5-15); CALCIUM 7.8 mg/dL (8.5-10.1); CHLORIDE 106 mmol/L (98-107)
[2020-03-20 05:08] LABS: CREATININE 6.76 mg/dL (0.55-1.02)
[2020-03-20 05:46] LABS: MD YES
[2020-03-20 05:47] LABS: BANDS%(MANUAL) 1 % (0-7); EOS% (MANUAL) 2 % (1-7); LYMPHS% (MANUAL) 13 % (22-44); MONOS% (MANUAL) 4 % (2-9); MYELOCYTES% (MANUAL) 2 % (0-0); SEGS% (MANUAL) 78 % (42-75)
[2020-03-20 05:48] LABS: ANISOCYTOSIS 1+; POLYCHROMASIA 1+
[2020-03-20 05:50] LABS: <PLATELET ESTIMATE> ADEQUATE
[2020-03-20 05:51] LABS: LARGE PLATELETS 1+
[2020-03-20 06:03] LABS: RED BLOOD COUNT 2.67 x10^6/uL (3.82-5.3); RETICULOCYTE COUNT % 7.57 % (0.5-1.5)
[2020-03-20 06:04] LABS: ABSOLUTE RETICS # 0.202 x10^6/uL (0.5-2.5)
[2020-03-20] MEDS: METOPROLOL TARTRATE 50 MG TAB PO SCH ×2 (06:56→17:00)
[2020-03-20] MEDS: SIMETHICONE 80 MG CHEW TAB PO SCH ×4 (08:00→20:59)
[2020-03-20] MEDS: ESCITALOPRAM 10MG TABLET PO SCH (08:49)
[2020-03-20] MEDS: DOCUSATE 100 MG CAPSULE PO SCH (08:49)
[2020-03-20 09:02] LABS: INTERNATIONAL NORMALIZED RATIO 0.99 (0.93-1.1); PROTHROMBIN TIME 10.5 Seconds (9.6-11.5)
[2020-03-20] MEDS ORDERED: FUROSEMIDE 100 MG/10 ML IV ONE (10:00)
[2020-03-20] MEDS ORDERED: FUROSEMIDE 40 MG/4 ML ONE (10:14)
[2020-03-20] MEDS: PENICILLIN VK 500MG TABLET PO SCH ×2 (10:18→22:54)
[2020-03-20] MEDS: TEMAZEPAM 15 MG CAPSULE PO SCH (20:57)
[2020-03-21] VITALS (8 sets, daily range): BP systolic 126–145; BP diastolic 80–99
[2020-03-21 05:35] LABS: ABSOLUTE RETICS # 0.168 x10^6/uL (0.5-2.5); BASOPHILS % (AUTO) 1 % (0-1); EOSINOPHILS % (AUTO) 2 % (1-7); LYMPHOCYTES % (AUTO) 13 % (22-44); MEAN CORPUSCULAR HGB CONC 34.2 g/dL (32.4-35.8); MEAN PLATELET VOLUME 9.2 fL (7.4-10.4); MONOCYTES % (AUTO) 8 % (2-9); PLATELET COUNT 232 x10^3/uL (130-400); RED BLOOD COUNT 2.72 x10^6/uL (3.82-5.3); RED CELL DISTRIBUTION WIDTH 16.5 % (9.6-15.2); RETICULOCYTE COUNT % 6.18 % (0.5-1.5)
[2020-03-21 05:37] LABS: ANION GAP 8 mmol/L (5-15); CALCIUM 7.8 mg/dL (8.5-10.1); CHLORIDE 106 mmol/L (98-107)
[2020-03-21 05:38] LABS: CREATININE 5.27 mg/dL (0.55-1.02)
[2020-03-21] MEDS: METOPROLOL TARTRATE 50 MG TAB PO SCH (06:00)
[2020-03-21 06:37] LABS: MD YES
[2020-03-21 06:38] LABS: BASOS#(MANUAL) 0.09 x10^3/uL (0-0.1); BASOS% (MANUAL) 1 % (0-1); EOS#(MANUAL) 0.37 x10^3/uL (0.0-0.4); EOS% (MANUAL) 4 % (1-7); METAMYELOCYTES# (MANUAL) 0.09 x10^3/uL (0-0); METAMYELOCYTES% (MANUAL) 1 % (0-1); MONOS#(MANUAL) 0.56 x10^3/uL (0.3-2.7); MONOS% (MANUAL) 6 % (2-9); SEG#(MANUAL) 6.51 x10^3/uL (1.8-6.8); SEGS% (MANUAL) 70 % (42-75)
[2020-03-21 06:39] LABS: LYMPH#(MANUAL) 1.49 x10^3/uL (1-3.4); LYMPHS% (MANUAL) 16 % (22-44); REACTIVE LYMPHS # (MANUAL) 0.19 x10^3/uL (0-0); REACTIVE LYMPHS % (MANUAL) 2 % (0-0)
[2020-03-21 06:40] LABS: ANISOCYTOSIS 1+; OVALOCYTES 1+
[2020-03-21 06:42] LABS: <PLATELET ESTIMATE> ADEQUATE; <PLT MORPHOLOGY> NORMAL PLT MORPH
[2020-03-21] MEDS: SIMETHICONE 80 MG CHEW TAB PO SCH ×4 (07:16→20:55)
[2020-03-21] MEDS: ESCITALOPRAM 10MG TABLET PO SCH (08:14)
[2020-03-21] MEDS: PENICILLIN VK 500MG TABLET PO SCH ×2 (08:15→20:55)
[2020-03-21] MEDS: DOCUSATE 100 MG CAPSULE PO SCH (08:15)
[2020-03-21] MEDS: PROCHLORPERAZINE 5 MG/ML, 2ML IV PRN (08:16)
[2020-03-21] MEDS ORDERED: MIDAZOLAM 1 MG/ML, 5ML ONE (15:27)
[2020-03-21] MEDS ORDERED: FLUMAZENIL 0.1 MG/1 ML, 5ML ONE (15:27)
[2020-03-21] MEDS ORDERED: FENTANYL PF 100 MCG/2ML ONE (15:27)
[2020-03-21] MEDS ORDERED: NALOXONE 1 MG/ML, 2ML ONE (15:28)
[2020-03-21] MEDS: FUROSEMIDE 80 MG TABLET PO SCH (17:40)
[2020-03-21] MEDS: METOPROLOL TARTRATE 25 MG TAB PO SCH (17:40)
[2020-03-21] MEDS: TEMAZEPAM 15 MG CAPSULE PO SCH (20:50)
[2020-03-22 00:07] VITALS: BP 143/96
[2020-03-22] MEDS: PROCHLORPERAZINE 5 MG/ML, 2ML IV PRN ×2 (04:00→20:56)
[2020-03-22 04:36] LABS: BASOPHILS % (AUTO) 1 % (0-1); EOSINOPHILS % (AUTO) 1 % (1-7); LYMPHOCYTES % (AUTO) 9 % (22-44); MEAN CORPUSCULAR HGB CONC 33.5 g/dL (32.4-35.8); MEAN PLATELET VOLUME 9.1 fL (7.4-10.4); MONOCYTES % (AUTO) 5 % (2-9); NEUTROPHILS % (AUTO) 85 % (42-75); PLATELET COUNT 284 x10^3/uL (130-400); RED BLOOD COUNT 2.54 x10^6/uL (3.82-5.3); RED CELL DISTRIBUTION WIDTH 16.6 % (9.6-15.2); RETICULOCYTE COUNT % 5.51 % (0.5-1.5)
[2020-03-22 04:49] LABS: ANION GAP 9 mmol/L (5-15); CALCIUM 7.9 mg/dL (8.5-10.1); CHLORIDE 103 mmol/L (98-107)
[2020-03-22 04:52] LABS: CREATININE 6.22 mg/dL (0.55-1.02)
[2020-03-22 05:24] VITALS: BP 145/84
[2020-03-22 06:02] LABS: MD MORPH REVIEW ONLY
[2020-03-22 06:04] LABS: ANISOCYTOSIS 1+; POLYCHROMASIA 1+; SCHISTOCYTES 1+
[2020-03-22] MEDS: METOPROLOL TARTRATE 25 MG TAB PO SCH ×2 (06:04→16:59)
[2020-03-22 06:05] LABS: <PLATELET ESTIMATE> ADEQUATE; <PLT MORPHOLOGY> NORMAL PLT MORPH
[2020-03-22 07:53] VITALS: BP 151/93
[2020-03-22] MEDS: SIMETHICONE 80 MG CHEW TAB PO SCH ×4 (08:00→20:52)
[2020-03-22] MEDS: FUROSEMIDE 80 MG TABLET PO SCH ×2 (09:45→16:59)
[2020-03-22] MEDS: ESCITALOPRAM 10MG TABLET PO SCH (09:45)
[2020-03-22] MEDS: DOCUSATE 100 MG CAPSULE PO SCH (09:46)
[2020-03-22] MEDS: LACTATED RINGERS 1,000 ML IV SCH ×2 (09:46→22:20)
[2020-03-22] MEDS: PENICILLIN VK 500MG TABLET PO SCH ×2 (09:47→22:12)
[2020-03-22 12:56] VITALS: BP 125/89
[2020-03-22 14:51] LABS: MEAN CORPUSCULAR HEMOGLOBIN 30.3 pg (27.0-34.8); MEAN CORPUSCULAR HGB CONC 33.5 g/dL (32.4-35.8); MEAN PLATELET VOLUME 8.7 fL (7.4-10.4); PLATELET COUNT 325 x10^3/uL (130-400); RED BLOOD COUNT 2.68 x10^6/uL (3.82-5.3); RED CELL DISTRIBUTION WIDTH 17.1 % (9.6-15.2)
[2020-03-22 14:56] LABS: MD YES
[2020-03-22 16:30] LABS: ANISOCYTOSIS 1+; BASOS#(MANUAL) 0.16 x10^3/uL (0-0.1); BASOS% (MANUAL) 1 % (0-1); EOS#(MANUAL) 0.16 x10^3/uL (0.0-0.4); EOS% (MANUAL) 1 % (1-7); LYMPH#(MANUAL) 1.45 x10^3/uL (1-3.4); LYMPHS% (MANUAL) 9 % (22-44); MONOS#(MANUAL) 0.16 x10^3/uL (0.3-2.7); MONOS% (MANUAL) 1 % (2-9); POLYCHROMASIA 1+; SEG#(MANUAL) 14.17 x10^3/uL (1.8-6.8); SEGS% (MANUAL) 88 % (42-75)
[2020-03-22 16:31] LABS: <PLATELET ESTIMATE> ADEQUATE; <PLT MORPHOLOGY> NORMAL PLT MORPH
[2020-03-22 16:32] LABS: SCHISTOCYTES 1+
[2020-03-22 20:16] VITALS: BP 150/90
[2020-03-22] MEDS: TEMAZEPAM 15 MG CAPSULE PO SCH (20:52)
[2020-03-22] MEDS: LORazepam 1MG TABLET PO PRN (22:14)
[2020-03-23 03:05] VITALS: BP 167/99
[2020-03-23] MEDS: METOPROLOL TARTRATE 25 MG TAB PO SCH ×3 (06:05→17:13)
[2020-03-23 06:40] LABS: ABSOLUTE RETICS # 0.077 x10^6/uL (0.5-2.5); BASOPHILS % (AUTO) 1 % (0-1); EOSINOPHILS % (AUTO) 0 % (1-7); LYMPHOCYTES % (AUTO) 8 % (22-44); MEAN CORPUSCULAR HEMOGLOBIN 30.8 pg (27.0-34.8); MEAN CORPUSCULAR HGB CONC 33.8 g/dL (32.4-35.8); MEAN PLATELET VOLUME 8.6 fL (7.4-10.4); MONOCYTES % (AUTO) 4 % (2-9); NEUTROPHILS % (AUTO) 87 % (42-75); PLATELET COUNT 345 x10^3/uL (130-400); RED BLOOD COUNT 2.38 x10^6/uL (3.82-5.3); RED CELL DISTRIBUTION WIDTH 16.4 % (9.6-15.2); RETICULOCYTE COUNT % 3.22 % (0.5-1.5)
[2020-03-23 06:45] LABS: CHLORIDE 102 mmol/L (98-107)
[2020-03-23 06:52] LABS: ANION GAP 8 mmol/L (5-15); CALCIUM 8.2 mg/dL (8.5-10.1); CREATININE 6.89 mg/dL (0.55-1.02)
[2020-03-23 07:42] VITALS: BP 149/91
[2020-03-23] MEDS: SIMETHICONE 80 MG CHEW TAB PO SCH ×6 (08:00→22:16)
[2020-03-23 08:26] LABS: MD SCAN
[2020-03-23] MEDS: FUROSEMIDE 80 MG TABLET PO SCH ×2 (08:33→16:08)
[2020-03-23] MEDS: ESCITALOPRAM 10MG TABLET PO SCH (08:34)
[2020-03-23] MEDS: DOCUSATE 100 MG CAPSULE PO SCH (08:40)
[2020-03-23] MEDS: PENICILLIN VK 500MG TABLET PO SCH ×2 (09:50→22:14)
[2020-03-23] MEDS: PROCHLORPERAZINE 5 MG/ML, 2ML IV PRN ×2 (12:40→22:15)
[2020-03-23 13:36] VITALS: BP 131/81
[2020-03-23 19:28] VITALS: BP 135/83
[2020-03-23] MEDS: TEMAZEPAM 15 MG CAPSULE PO SCH (22:14)
[2020-03-24 04:49] VITALS: BP 146/91
[2020-03-24 06:18] LABS: ANION GAP 4 mmol/L (5-15); CALCIUM 8.1 mg/dL (8.5-10.1); CHLORIDE 102 mmol/L (98-107)
[2020-03-24 06:21] LABS: CREATININE 4.25 mg/dL (0.55-1.02)
[2020-03-24] MEDS: METOPROLOL TARTRATE 25 MG TAB PO SCH ×2 (06:30→17:42)
[2020-03-24 06:34] LABS: ABSOLUTE RETICS # 0.074 x10^6/uL (0.5-2.5); BASOPHILS % (AUTO) 1 % (0-1); EOSINOPHILS % (AUTO) 1 % (1-7); LYMPHOCYTES % (AUTO) 12 % (22-44); MEAN CORPUSCULAR HEMOGLOBIN 30.8 pg (27.0-34.8); MEAN CORPUSCULAR HGB CONC 34.1 g/dL (32.4-35.8); MEAN PLATELET VOLUME 8.5 fL (7.4-10.4); MONOCYTES % (AUTO) 8 % (2-9); NEUTROPHILS % (AUTO) 78 % (42-75); PLATELET COUNT 354 x10^3/uL (130-400); RED BLOOD COUNT 2.62 x10^6/uL (3.82-5.3); RED CELL DISTRIBUTION WIDTH 16.8 % (9.6-15.2); RETICULOCYTE COUNT % 2.83 % (0.5-1.5)
[2020-03-24 06:47] LABS: MD NO
[2020-03-24 07:27] VITALS: BP 140/76
[2020-03-24] MEDS: PENICILLIN VK 500MG TABLET PO SCH ×2 (09:25→21:51)
[2020-03-24] MEDS: ESCITALOPRAM 10MG TABLET PO SCH (09:26)
[2020-03-24] MEDS: DOCUSATE 100 MG CAPSULE PO SCH (09:26)
[2020-03-24] MEDS: FUROSEMIDE 80 MG TABLET PO SCH ×2 (09:58→17:43)
[2020-03-24] MEDS: POTASSIUM CHLORIDE 20 MEQ TAB.ER.PRT PO SCH ×2 (11:40→17:42)
[2020-03-24] MEDS: SIMETHICONE 80 MG CHEW TAB PO SCH ×3 (12:27→21:00)
[2020-03-24 13:03] VITALS: BP 127/81
[2020-03-24] MEDS: PROCHLORPERAZINE 5 MG/ML, 2ML IV PRN (16:47)
[2020-03-24 19:51] VITALS: BP 126/77
[2020-03-24] MEDS: TEMAZEPAM 15 MG CAPSULE PO SCH (21:51)
[2020-03-25 03:50] VITALS: BP 142/81
[2020-03-25 05:41] LABS: ABSOLUTE RETICS # 0.074 x10^6/uL (0.5-2.5); BASOPHILS % (AUTO) 2 % (0-1); EOSINOPHILS % (AUTO) 2 % (1-7); LYMPHOCYTES % (AUTO) 20 % (22-44); MEAN CORPUSCULAR HEMOGLOBIN 31.4 pg (27.0-34.8); MEAN CORPUSCULAR HGB CONC 34.8 g/dL (32.4-35.8); MEAN PLATELET VOLUME 8.1 fL (7.4-10.4); MONOCYTES % (AUTO) 9 % (2-9); NEUTROPHILS % (AUTO) 67 % (42-75); PLATELET COUNT 445 x10^3/uL (130-400); RED BLOOD COUNT 2.73 x10^6/uL (3.82-5.3); RED CELL DISTRIBUTION WIDTH 16.9 % (9.6-15.2); RETICULOCYTE COUNT % 2.72 % (0.5-1.5)
[2020-03-25 05:44] LABS: MD NO
[2020-03-25 05:52] LABS: BILIRUBIN, DIRECT 0.2 mg/dL (0.1-0.2)
[2020-03-25 05:54] LABS: BILIRUBIN,INDIRECT 0.4 mg/dL (0.0-2.0); BILIRUBIN,TOTAL 0.6 mg/dL (0.2-1.0); TOTAL PROTEIN 6.5 g/dL (6.4-8.2)
[2020-03-25] MEDS: METOPROLOL TARTRATE 25 MG TAB PO SCH ×2 (06:30→17:12)
[2020-03-25 06:47] LABS: ANION GAP 8 mmol/L (5-15); CALCIUM 8.3 mg/dL (8.5-10.1); CHLORIDE 105 mmol/L (98-107); CREATININE 5.05 mg/dL (0.55-1.02)
[2020-03-25 07:54] VITALS: BP 130/81
[2020-03-25] MEDS: SIMETHICONE 80 MG CHEW TAB PO SCH ×5 (08:00→22:31)
[2020-03-25] MEDS: DOCUSATE 100 MG CAPSULE PO SCH (09:00)
[2020-03-25] MEDS: FUROSEMIDE 80 MG TABLET PO SCH ×2 (09:56→17:11)
[2020-03-25] MEDS: POTASSIUM CHLORIDE 20 MEQ TAB.ER.PRT PO SCH ×3 (09:56→17:11)
[2020-03-25] MEDS: ESCITALOPRAM 10MG TABLET PO SCH (09:57)
[2020-03-25] MEDS: PENICILLIN VK 500MG TABLET PO SCH ×2 (10:04→22:35)
[2020-03-25 14:40] VITALS: BP 148/97
[2020-03-25] MEDS ORDERED: LIDOCAINE 1%, 20ML ONE (14:43)
[2020-03-25] MEDS ORDERED: NALOXONE 1 MG/ML, 2ML ONE (14:52)
[2020-03-25] MEDS ORDERED: MIDAZOLAM 1 MG/ML, 5ML ONE ×2 (14:52)
[2020-03-25] MEDS ORDERED: FENTANYL PF 100 MCG/2ML ONE (14:52)
[2020-03-25] MEDS ORDERED: FLUMAZENIL 0.1 MG/1 ML, 5ML ONE (14:52)
[2020-03-25] MEDS ORDERED: CEFAZOLIN PMX 1GM/50ML 50 ML ONE (14:55)
[2020-03-25 19:16] VITALS: BP 112/72
[2020-03-25] MEDS: TEMAZEPAM 15 MG CAPSULE PO SCH (22:30)
[2020-03-25] MEDS: SODIUM CHLORIDE FLUSH 10ML SYR IVF SCH (22:31)
[2020-03-25] MEDS: LORazepam 1MG TABLET PO PRN (22:35)
[2020-03-26 00:55] VITALS: BP 118/73
[2020-03-26] MEDS ORDERED: METOPROLOL TARTRATE 50 MG TAB ONE (05:46)
[2020-03-26] MEDS: METOPROLOL TARTRATE 25 MG TAB PO SCH (05:49)
[2020-03-26 05:52] LABS: ALBUMIN 3.4 g/dL (3.4-5.0); ANION GAP 7 mmol/L (5-15); CHLORIDE 105 mmol/L (98-107)
[2020-03-26 05:53] LABS: ABSOLUTE RETICS # 0.071 x10^6/uL (0.5-2.5); BASOPHILS % (AUTO) 3 % (0-1); EOSINOPHILS % (AUTO) 3 % (1-7); LYMPHOCYTES % (AUTO) 20 % (22-44); MEAN CORPUSCULAR HEMOGLOBIN 30.6 pg (27.0-34.8); MEAN CORPUSCULAR HGB CONC 33.8 g/dL (32.4-35.8); MEAN PLATELET VOLUME 7.8 fL (7.4-10.4); MONOCYTES % (AUTO) 8 % (2-9); NEUTROPHILS % (AUTO) 67 % (42-75); PLATELET COUNT 589 x10^3/uL (130-400); RED BLOOD COUNT 3.18 x10^6/uL (3.82-5.3); RED CELL DISTRIBUTION WIDTH 16.2 % (9.6-15.2); RETICULOCYTE COUNT % 2.25 % (0.5-1.5)
[2020-03-26 05:56] LABS: ALANINE AMINOTRANSFERASE 13 U/L (12-78); ALKALINE PHOSPHATASE 111 U/L (45-117); BILIRUBIN, DIRECT 0.3 mg/dL (0.1-0.2); BILIRUBIN,INDIRECT 0.3 mg/dL (0.0-2.0); BILIRUBIN,TOTAL 0.6 mg/dL (0.2-1.0); CREATININE 5.08 mg/dL (0.55-1.02); TOTAL PROTEIN 7.5 g/dL (6.4-8.2)
[2020-03-26 06:14] LABS: MD NO
[2020-03-26 07:15] VITALS: BP 113/78
[2020-03-26] MEDS ORDERED: SODIUM CHLORIDE 0.9% IV ONE (07:30)
[2020-03-26] MEDS ORDERED: ECULIZUMAB IV ONE (07:30)
[2020-03-26] MEDS: DOCUSATE 100 MG CAPSULE PO SCH (07:47)
[2020-03-26] MEDS: ESCITALOPRAM 10MG TABLET PO SCH (07:47)
[2020-03-26] MEDS: POTASSIUM CHLORIDE 20 MEQ TAB.ER.PRT PO SCH (07:47)
[2020-03-26] MEDS: SIMETHICONE 80 MG CHEW TAB PO SCH (07:48)
[2020-03-26] MEDS: FUROSEMIDE 80 MG TABLET PO SCH (07:48)
[2020-03-26] MEDS ORDERED: FURO80TA3 PO (08:38)
[2020-03-26] MEDS ORDERED: HYDR-3343 PO (08:38)
[2020-03-26] MEDS ORDERED: PENI500T PO (08:38)
[2020-03-26] MEDS ORDERED: METO25TA35 PO (08:38)
[2020-03-26] MEDS ORDERED: ESCI10TA PO (08:38)
[2020-03-26] MEDS ORDERED: PRED20TA PO (08:38)
[2020-03-26] MEDS: SODIUM CHLORIDE FLUSH 10ML SYR IVF SCH (09:00)
[2020-03-26] MEDS: PENICILLIN VK 500MG TABLET PO SCH (09:59)
== END 2020-03-26 10:55 | disposition home or self-care (01) | DRG 783 ==
LOC: LDIP 21:07 → 2NE 03-11 01:23 → CCU 03-11 08:08 → 4NE 03-16 18:30
PROVIDERS: ADMIT Obstetrics & Gynecology; ATTEND Hospitalist
PROC: 0W3R7ZZ Control Bleeding in Genitourinary Tract, Via Natural or Artificial Opening (ICD-10-PCS; principal; 2020-03-11)
PROC: 10D00Z1 Extraction of Products of Conception, Low, Open Approach (ICD-10-PCS; 2020-03-11)
PROC: 0UB70ZZ Excision of Bilateral Fallopian Tubes, Open Approach (ICD-10-PCS; 2020-03-11)
PROC: 10D17Z9 Manual Extraction of Products of Conception, Retained, Via Natural or Artificial Opening (ICD-10-PCS; 2020-03-11)
PROC: 0UT90ZZ Resection of Uterus, Open Approach (ICD-10-PCS; 2020-03-11)
PROC: 30233N1 Transfusion of Nonautologous Red Blood Cells into Peripheral Vein, Percutaneous Approach (ICD-10-PCS; 2020-03-11)
PROC: 30233K1 Transfusion of Nonautologous Frozen Plasma into Peripheral Vein, Percutaneous Approach (ICD-10-PCS; 2020-03-13)
PROC: 30233P1 Transfusion of Nonautologous Frozen Red Cells into Peripheral Vein, Percutaneous Approach (ICD-10-PCS; 2020-03-13)
PROC: 02HV33Z Insertion of Infusion Device into Superior Vena Cava, Percutaneous Approach (ICD-10-PCS; 2020-03-13)
PROC: 5A1D70Z Performance of Urinary Filtration, Intermittent, Less than 6 Hours Per Day (ICD-10-PCS; 2020-03-14)
PROC: 5A1D70Z Performance of Urinary Filtration, Intermittent, Less than 6 Hours Per Day (ICD-10-PCS; 2020-03-16)
PROC: 5A1D70Z Performance of Urinary Filtration, Intermittent, Less than 6 Hours Per Day (ICD-10-PCS; 2020-03-18)
PROC: 5A1D70Z Performance of Urinary Filtration, Intermittent, Less than 6 Hours Per Day (ICD-10-PCS; 2020-03-20)
PROC: 0TB13ZX Excision of Left Kidney, Percutaneous Approach, Diagnostic (ICD-10-PCS; 2020-03-21)
PROC: 0JH63XZ Insertion of Tunneled Vascular Access Device into Chest Subcutaneous Tissue and Fascia, Percutaneous Approach (ICD-10-PCS; 2020-03-25)
PROC: 02HV33Z Insertion of Infusion Device into Superior Vena Cava, Percutaneous Approach (ICD-10-PCS; 2020-03-25)
PROC: B5181ZA Fluoroscopy of Superior Vena Cava using Low Osmolar Contrast, Guidance (ICD-10-PCS; 2020-03-25)
PROC: B548ZZA Ultrasonography of Superior Vena Cava, Guidance (ICD-10-PCS; 2020-03-25)
DX: O48.0 Post-term pregnancy (principal); U07.1 COVID-19; N17.0 Acute kidney failure with tubular necrosis; D59.3 Hemolytic-uremic syndrome; O99.354 Diseases of the nervous system complicating childbirth; O99.12 Other diseases of the blood and blood-forming organs and certain disorders involving the immune mechanism complicating childbirth; O98.52 Other viral diseases complicating childbirth; D62 Acute posthemorrhagic anemia; O72.1 Other immediate postpartum hemorrhage; O26.62 Liver and biliary tract disorders in childbirth; E87.4 Mixed disorder of acid-base balance; O99.824 Streptococcus B carrier state complicating childbirth; O99.344 Other mental disorders complicating childbirth; O99.214 Obesity complicating childbirth; O90.81 Anemia of the puerperium; O99.284 Endocrine, nutritional and metabolic diseases complicating childbirth; O77.0 Labor and delivery complicated by meconium in amniotic fluid; O62.0 Primary inadequate contractions; G43.909 Migraine, unspecified, not intractable, without status migrainosus; K76.89 Other specified diseases of liver; O14.24 HELLP syndrome, complicating childbirth; O25.2 Malnutrition in childbirth; D69.59 Other secondary thrombocytopenia; E66.9 Obesity, unspecified; E87.6 Hypokalemia; F32.9 Major depressive disorder, single episode, unspecified; F41.9 Anxiety disorder, unspecified; Z3A.40 40 weeks gestation of pregnancy; Z80.8 Family history of malignant neoplasm of other organs or systems; Z99.2 Dependence on renal dialysis; Z90.711 Acquired absence of uterus with remaining cervical stump; Z37.0 Single live birth; Z80.0 Family history of malignant neoplasm of digestive organs; Z82.49 Family history of ischemic heart disease and other diseases of the circulatory system; Z83.3 Family history of diabetes mellitus; Z86.19 Personal history of other infectious and parasitic diseases
CPT/HCPCS: 36415; 36600; 85610; 85613; 85670; 85730; 86146; 86147; J3490; 36514; 36556; 36558; 50200; 71045; 76770; 76937; 77012; 80048; 80053; 80074; 80076; 81001; 82040; 82247; 82248; 82330; 82570; 82803; 82947; 83010; 83520; 83615; 83735; 84075; 84132; 84156; 84295; 84450; 84460; 84478; 85014; 85018; 85025; 85027; 85045; 85049; 85240; 85379; 85384; 85397; 85598; 85651; 85732; 86038; 86160; 86162; 86256; 86480; 86592; 86850; 86900; 86923; 87040; 87070; 87081; 87205; 87635; 88300; 88307; 90734; 90935; 94002; 99156; 99157; C1894; G0378; J0690; J1300; J1940; J2250; J2405; J2540; J2704; J3010; J7070; 86226; C1750; C1751; J0330; J0360; J0780; J1642; J2210; J2270; J2310; J2590; J3475; J7120; J7512; P9016; P9017; P9035; U0003